=== PATIENT | female | born 1970 | race African-American/Black ===

== ENCOUNTER → 2017-08-30 | Outpatient (CLI) | payer BC ==
[~2017-08-30] VITALS: Ht 160 cm; Wt 91.7 kg
[~2017-08-30] MED LIST: ALEVE220 MG PO; CHANTIX1 MG PO; FLAGYL500 M1 PO; FLEXERIL PO; IBUPROFEN 200200 M1 PO; IBUPROFEN 600600 M1 PO; MOBIC15 MG PO; NORCO 5-325 TA1 EACH PO; PEPCID40 MG PO; PERCOCET 5-3251 EACH; PHENERGAN 25 MG25 M1 PO; PREDNISONE; PREDNISONE 20 M20 M1 PO; PROVENTIL HFA6.7 G1 INH; ZOFRAN ODT4 MG PO; [UNRECOGNIZED DRUG - REMARK]
--- NOTE | ~2017-08-30 | HPC ---
[facility] [address] [place] [address] PAIN MANAGEMENT CONSULTATION Name: MEENAKSHI SALGUERO [id number] Admission: 08/30/17 Attend Phys: Oscar Gupta DO Discharge: Date of : 70 Report #: [id number] THIS REPORT FOR: //name// CC: Evelyn Gupta DATE OF SERVICE: 08/30/2017 The patient is a very pleasant 47-year-old female seen in consultation at the request of Dr. Gu for assistance with management of chronic axial back pain, but specifically pain, left hip present for the last 6 months without antecedent trauma and overuse. She notes it gets worse throughout the day. Wakes her from sleep. She describes it as a burning, stinging sensation. She denies any myelopathic symptoms such as weakness, bowel or bladder continence changes, saddle anesthesia. She notes soaking in a hot tub helps a little, nonsteroidal anti-inflammatory medications helps a little as well. Pain, however, continues to be quite problematic, rating an 8-9 on VAS. She notes pain is steady, constant, burning, shooting, aching, sharp and stabbing. REVIEW OF SYSTEMS: Complete review of systems attached to chart and gone over with the patient. She is . She smokes one-half pack a day, which she has for 15 years. She does not drink alcohol to excess. Has a history of some GI issues, nausea and what sounds like gastroesophageal reflux, though she is really on no prescription medications. The patient is a homemaker. Pain impact score is 53/70. PHYSICAL EXAMINATION: A 5-foot 4-inch, 202-pound female in moderate distress. BMI is 35.8 kilograms per meter squared. Blood pressure 123/74, pulse 82, respirations 14, room air oxygen saturation is 100%. Cranial nerves 2-12 are grossly intact. Pupils equal, react to light and accommodation. Extraocular muscles are intact. Thyroid is enlarged. No nodules are noted. Upper extremity strength is preserved. Lungs are generally clear. Heart is regular rhythm without murmur. She has an endomorphic build. Rises from the chair using the armrest. Gait is tandem. Lower extremity strength is preserved at 4/5 to all muscle groups tested. Patellar and Achilles reflexes are preserved. Straight leg raise is modestly positive on the left. Pain with passive rotation of the left hip. Pain is in the left lateral L4 distribution. Skin integument is intact. DIAGNOSTIC STUDIES: There are no diet diagnostic studies available for evaluation at this time. ASSESSMENT: 1. Symptomatic lumbar radiculopathy, left L4 pattern. [address] [address] PAIN MANAGEMENT CONSULTATION Name: MEENAKSHI SALGUERO Room #: REG [facility] Azul#: [id number] Admission: 08/30/17 Attend Phys: Oscar Gupta DO Discharge: Date of : 70 Report #: [id number] 2. Possible component of left hip and/or sacroiliac mediated pain. RECOMMENDATIONS: 1. We will order x-rays of the left hip, pelvis x-ray and lumbar spine. 2. Seek authorization for left L4-L5 radicular pain with positive neural tensioning symptoms (positive straight leg raise on the left). Pain in the left L4 pattern. Thanks for allowing me to participate in the patient's care. I will keep you abreast of her progress. <ELECTRONICALLY SIGNED> By: Oscar Gupta DO 09/03/17 [id number] Oscar Gupta DO /nt
[2017-08-30 13:19] VITALS: BP 123/74
== END ==
LOC: PAIN 08-20 07:06
DX: M47.896 Other spondylosis, lumbar region (principal); M54.16 Radiculopathy, lumbar region

== ENCOUNTER 2018-09-15 17:42 | Inpatient (IN) | payer BC ==
[~2018-09-15] VITALS: Ht 160 cm; Wt 88.9 kg
[2018-09-15 17:53] VITALS: BP 129/75
[2018-09-15 20:05] LABS: ABSOLUTE NEUTROPHILS 4.2 thou/uL (1.4-8.2); BASOPHILS 0.6 % (0.0-2.0); EOSINOPHILS 0.7 % (0.0-3.0); HEMATOCRIT 41.8 % (37.0-47.0); HEMOGLOBIN 14.1 gm/dL (12.0-15.0); LYMPHOCYTES 33.4 % (24.0-44.0); MCH 32.7 pg (26.0-34.0); MCHC 33.8 g/dL (28.0-37.0); MCV 96.5 fL (80.0-100.0); MONOCYTES 8.5 % (1.0-8.0); PLATELET COUNT 182 thou/uL (150-400); POLYS 56.8 % (36.0-66.0); RBC 4.33 mil/uL (4.20-5.00); RDW 13.3 % (10.5-14.5); WBC 7.3 thou/uL (4.0-11.0)
[2018-09-15 20:14] LABS: ANION GAP 11 mmol/L (7-16); BUN 14 mg/dL (7-18); CHLORIDE 102 mmol/L (98-107); CO2 26 mmol/L (21-32); GLUCOSE 94 mg/dL (74-106); POTASSIUM 3.4 mmol/L (3.5-5.1); SODIUM 139 mmol/L (136-145)
[2018-09-15 20:24] LABS: ALBUMIN 3.5 g/dL (3.4-5.0); SGOT 15 U/L (15-37); SGPT 16 U/L (30-65); TOTAL BILIRUBIN 0.5 mg/dL (<0.1-1.0); TOTAL PROTEIN 7.2 g/dL (6.4-8.2); TROPONIN-I <0.06 ng/mL (<0.06)
[2018-09-15 21:25] VITALS: BP 130/72
[2018-09-15 21:56] VITALS: BP 122/67
--- NOTE | 2018-09-16 01:04 | EKG ---
[address] [place] [address] ELECTROCARDIOGRAM REPORT Name: MEENAKSHI SALGUERO Room #: 424-P ADM IN M.R.#: [id number] ������������������ Admission: 09/15/18 ������������������ Attend Phys: Aidan Balbuena Discharge: ������������������ Date of : 70 Report #: [id number] ����������������������������������������������������������������� [id number] THIS REPORT FOR: //name// [facility] ED Test Date: 2018-09-15 Test Time: 19:57:21 Pat Name: MEENAKSHI SALGUERO Department: Room: [facility] Gender: F [employer]visor [employer]: : 1970 Requested By: Qing Jimenez Order Number: [id number] MD: Sukhdeep Nevarez Measurements Intervals [place] Rate: 91 P: 71 IA: 192 QRS: 77 QRSD: 90 T: 34 QT: 359 QTc: 442 Interpretive Statements Sinus rhythm Biatrial enlargement Nonspecific ST/T wave changes Compared to ECG 04/18/2013 17:57:02 First degree AV block no longer present Electronically Signed On 09-16-2018 1:04:35 CDT by Sukhdeep Nevarez [email or web address] ��������������������������������������������� <ELECTRONICALLY SIGNED> ���������������������������������������� By: Sukhdeep Nevarez MD ��������������������������������������������� [id number] Sukhdeep Nevarez MD /EPI
[2018-09-16 03:36] VITALS: BP 110/61
[2018-09-16 05:36] LABS: CALCIUM 8.9 mg/dL (8.5-10.1); CREATININE 0.9 mg/dL (0.6-1.0); POTASSIUM 3.9 mmol/L (3.5-5.1)
[2018-09-16 08:02] VITALS: BP 113/64
[2018-09-16] MEDS ORDERED: KLOR-CON 1010 MEQ PO (08:20)
[2018-09-16] MEDS ORDERED: MOBIC15 MG PO (08:20)
[2018-09-16] MEDS ORDERED: NICOTINE1 EAC2 (11:00)
[2018-09-16 16:08] VITALS: BP 130/64
[2018-09-16 18:14] LABS: ABSOLUTE NEUTROPHILS 6.9 thou/uL (1.4-8.2); BASOPHILS 0.2 % (0.0-2.0); EOSINOPHILS 0.1 % (0.0-3.0); HEMATOCRIT 44.7 % (37.0-47.0); HEMOGLOBIN 14.6 gm/dL (12.0-15.0); LYMPHOCYTES 7.2 % (24.0-44.0); MCH 32.2 pg (26.0-34.0); MCHC 32.6 g/dL (28.0-37.0); MCV 98.8 fL (80.0-100.0); MONOCYTES 0.6 % (1.0-8.0); PLATELET COUNT 198 thou/uL (150-400); POLYS 91.9 % (36.0-66.0); RBC 4.52 mil/uL (4.20-5.00); RDW 14.1 % (10.5-14.5); WBC 7.5 thou/uL (4.0-11.0)
[2018-09-16 22:41] VITALS: BP 117/60
[2018-09-17 05:55] VITALS: BP 138/74
[2018-09-17 07:51] VITALS: BP 117/64
[2018-09-17 16:45] VITALS: BP 126/64
--- NOTE | 2018-09-17 18:53 | HC ---
[facility] [place] [place] [address] CONSULTATION Name: MEENAKSHI SALGUERO Mark Room #: 424-P ADM IN M.R.#: [id number] Admission: 09/15/18 ������������������ Attend Phys: Ezra Moses MD Discharge: ������������������ Date of : 70 Report #: [id number] THIS REPORT FOR: //name// CC: Ezra Carolina TYPE OF REPORT: Pulmonary consultation. PRIMARY CARE PHYSICIAN: Evelyn Gu M.D. REFERRAL PHYSICIAN: Ezra Moses M.D. REASON FOR REFERRAL: Wheezing and dyspnea. HISTORY OF PRESENT ILLNESS: The patient is a 48-year-old -[place] female who presents to the ED with a cough and dyspnea. A Pulmonary consultation was requested. The patient states that she has never been diagnosed with asthma and COPD. She has smoked for many years. She smokes less than a pack a day. However, she also smokes marijuana and has done so for several years. She was in her usual state of health until the day of admission when she awoke in the morning with congestion, cough and dyspnea. With worsening cough, she presented to the Emergency Room. Chest x-ray shows clear lung field. Otherwise, denies any recent febrile illness, chest pain or productive cough. PAST MEDICAL HISTORY: Notable for rheumatoid arthritis for the last few years, involving both knees. ALLERGIES: To PENICILLIN, reactions not specified. HOME MEDICATIONS: Aleve. FAMILY HISTORY: Notable for asthma in her mother and asthma in her son. SOCIAL HISTORY: She is , has a son with asthma. Tobacco history as mentioned above. She also smoked marijuana. She denies any injection drug use. REVIEW OF SYSTEMS: As mentioned above and is also notable for bilateral knee pain and swelling and otherwise, unremarkable. [facility] [address] [place] [address] CONSULTATION Name: MEENAKSHI SALGUERO Room #: 424-P [facility]#: [id number] Admission: 09/15/18 ������������������ Attend Phys: Ezra Moses MD Discharge: ������������������ Date of : 70 Report #: [id number] PHYSICAL EXAMINATION: GENERAL: She is awake and alert, in no distress. VITAL SIGNS: Temperature is 97.9 degrees Fahrenheit, pulse is 86, respiratory rate is 18, blood pressure 130/64 mmHg and saturation 92%. HEENT: Normocephalic and atraumatic. NECK: Supple, without lymphadenopathy or thyromegaly. CHEST: Breath sounds are fair with moderate bilateral wheezes. CARDIOVASCULAR: Normal S1 and S2. There are no murmurs or gallop. There is no JVD. There is no carotid bruit. Pulses are 2+/4+ bilaterally. ABDOMEN: Soft and nontender. No organomegaly or masses felt. GENITOURINARY: Deferred. RECTAL: Deferred. EXTREMITIES: There is no edema, cyanosis or clubbing. There is moderate swelling noted in both knees. RADIOLOGICAL DATA: Chest x-ray is clear. LABORATORY DATA: Influenza A and B swab is negative. Electrolytes are normal. Liver enzymes are normal. WBC is normal. No evidence of eosinophilia. Platelets are normal. Hemoglobin is normal. Albumin 3.5. IMPRESSION: 1. Progressive cough, dyspnea in this 48-year-old -[place] female. She has wheezes by examination. She smokes tobacco products over the last several years. Exacerbation of chronic obstructive pulmonary disease is likely. It is unclear if she has underlying asthma. 2. Rheumatoid arthritis for the past several years involving both knees. 3. Tobacco abuse as mentioned above. RECOMMENDATIONS: We would recommend broad-spectrum antibiotics, corticosteroids and bronchodilators. DVT and GI prophylaxis recommended. Strongly recommend tobacco cessation. We will also be happy to see the patient in followup in the office when she is improved and discharged. Thank you for this consultation. ��������������������������������������������� <ELECTRONICALLY SIGNED> ���������������������������������������� By: Richard Carolina MD ��������������������������������������������� 09/17/18 1853 1803 [id number] Richard Carolina MD /nt
[2018-09-17 21:00] VITALS: BP 123/61
[2018-09-18 03:15] VITALS: BP 118/81
[2018-09-18 09:02] VITALS: BP 119/63
[2018-09-18 18:01] VITALS: BP 104/54
[2018-09-18 18:04] VITALS: BP 125/68
[2018-09-18 19:33] VITALS: BP 129/75
[2018-09-19 05:59] VITALS: BP 105/59
[2018-09-19 08:00] VITALS: BP 113/69
[2018-09-19] MEDS ORDERED: DOXYCYCLINE 10100 M1 PO (15:41)
[2018-09-19] MEDS ORDERED: VENTOLIN HFA 1818 GM INH (15:41)
[2018-09-19] MEDS ORDERED: PREDNISONE 10 M10 MG PO (15:42)
[2018-09-19] MEDS ORDERED: MUCINEX600 MG PO (15:43)
[2018-09-19 15:58] VITALS: BP 113/69
[2018-09-19 23:09] LABS: ADENOVIRUS Negative (Negative); INFLUENZA A Negative (Negative); INFLUENZA B Negative (Negative); METAPNEUMOVIRUS Negative (Negative); PARAINFLUENZA 1 Negative (Negative); PARAINFLUENZA 2 Negative (Negative); PARAINFLUENZA 3 Negative (Negative); RHINOVIRUS Positive (Negative); RSV A Negative (Negative); RSV B Negative (Negative)
== END 2018-09-19 18:42 | disposition home or self-care (01) | DRG 189 ==
LOC: ER 17:42 → 4E 20:54 → EROBS 20:54 → 4E 21:53 → ENTRNSPT 09-19 18:17 → 4E 09-19 18:42
PROVIDERS: Internal Medicine Pulmonary Disease; Nurse Practitioner Family; Physician Assistant; ADMIT Internal Medicine
DX: J96.01 Acute respiratory failure with hypoxia (principal); J44.1 Chronic obstructive pulmonary disease with (acute) exacerbation; J44.0 Chronic obstructive pulmonary disease with (acute) lower respiratory infection; J20.9 Acute bronchitis, unspecified; J45.909 Unspecified asthma, uncomplicated; M06.9 Rheumatoid arthritis, unspecified; F17.210 Nicotine dependence, cigarettes, uncomplicated; Z88.0 Allergy status to penicillin; Z82.5 Family history of asthma and other chronic lower respiratory diseases; Z71.6 Tobacco abuse counseling
CPT/HCPCS: 10084

== ENCOUNTER 2018-12-18 10:06 | Emergency (ER) | payer BC ==
[~2018-12-18] VITALS: Ht 160 cm; Wt 95.3 kg
[~2018-12-18 10:06] MED LIST changes: +DOXYCYCLINE 10100 M1 PO; +KLOR-CON 1010 MEQ PO; +MUCINEX600 MG PO; +NICOTINE1 EAC2; +PREDNISONE 10 M10 MG PO; +VENTOLIN HFA 1818 GM INH
[2018-12-18] MEDS ORDERED: IBUPROFEN 800800 M1 PO (10:24)
[2018-12-18] MEDS ORDERED: FLEXERIL PO (10:25)
[2018-12-18 11:05] LABS: HEMATOCRIT 40.1 % (37.0-47.0); HEMOGLOBIN 13.3 gm/dL (12.0-15.0); MCH 32.6 pg (26.0-34.0); MCHC 33.3 g/dL (28.0-37.0); MCV 98.1 fL (80.0-100.0); RBC 4.08 mil/uL (4.20-5.00); RDW 13.6 % (10.5-14.5); WBC 4.2 thou/uL (4.0-11.0)
[2018-12-18 11:12] LABS: CALCIUM 9.5 mg/dL (8.5-10.1); POTASSIUM 3.3 mmol/L (3.5-5.1)
[2018-12-18 11:19] LABS: ALBUMIN 3.6 g/dL (3.4-5.0); DIRECT BILIRUBIN 0.2 mg/dL (<0.1-0.3); TOTAL BILIRUBIN 0.9 mg/dL (<0.1-1.0); TOTAL PROTEIN 6.8 g/dL (6.4-8.2)
[2018-12-18] MEDS ORDERED: MOBIC15 MG PO (11:47)
[2018-12-18] MEDS ORDERED: VOLTAREN GEL 1100 G2 TOP (11:47)
[2018-12-18 12:10] VITALS: BP 110/72
== END 2018-12-18 12:13 | disposition home or self-care (01) ==
LOC: ER 10:06
PROVIDERS: Emergency Medicine
DX: M25.562 Pain in left knee (principal); R60.0 Localized edema; F17.210 Nicotine dependence, cigarettes, uncomplicated; M06.9 Rheumatoid arthritis, unspecified; Z88.0 Allergy status to penicillin